=== PATIENT | female | born 1975 | race Caucasian/White ===

== ENCOUNTER 2018-03-10 21:49 | Emergency (ER) | payer OTHER, SELFPAY ==
[2018-03-10 21:50] VITALS: BP 122/72; PULSE 62; RESP 16; TEMP 36.6; O2SAT 98; BMI 26.9
--- NOTE | 2018-03-10 21:58 | RAD_ITS ---
STUDY: X-RAY - LEFT ELBOW REASON FOR EXAM: Female, 42 years old. Fell off of report. TECHNIQUE: 5 view(s) of the elbow. COMPARISON: None. FINDINGS: There is a minimally depressed fracture of the radial head extends into the articular surface of the radius. Elevation of the fat pads. Normal visualized humerus and ulna. Normal radiocapitellar and ulnotrochlear articulations. The soft tissue structures are unremarkable. RAD/Elbow min 3 Views IMPRESSION: Minimally depressed fracture of the radial head Electronically Signed: Trent Sandhu DO at 23:04 EST Tel [phone], Service support ,
--- NOTE | 2018-03-10 23:36 | ED.VISSUMM ---
- ER Visit Summary Date of Service: 03/10/18 Chief Complaint: Left elbow pain and swelling History of Present Illness: The patient is a 42 F who presents with left elbow pain and swelling. She fell off a hover board today and hit her left elbow. She also hit her head. She was wearing a helmet. There was no loss of consciousness. She denies headache. She denies vomiting. She is not anticoagulated. He complains of some tingling in her forearm but no weakness or loss of function. Physical Examination: Afebrile vitals are normal Moist mucous membranes Heart regular rate and rhythm Lungs are clear Patient does have pain on palpation over the left elbow and mild soft tissue swelling palpable radial pulse normal motor function brisk capillary refill normal sensation to light touch GCS of 15 with no focal or lateralizing neurological deficits Test Results: Elbow x-ray shows a minimally depressed fracture of the radial head of Emergency Department Course and Treatment: Patient's pain is well controlled. She was placed in an Ortho-Glass long-arm splint and given a sling. She was advised on supportive care including anti-inflammatories rest ice and elevation. She was referred to orthopedics for follow-up and discharged home. Treatment Plan: [] Disposition: Discharge Impression: Radial head fracture, left This note was generated with [employer] dictation software. It may contain incorrect words, spelling, and punctuation that were not noted in review of the chart prior to signing ED Disposition - Plan for ED Patient: Chief Complaint: Upper Extremity Injury Referrals: Yany Davenport MD [Primary Care Provider] -
--- NOTE | 2018-03-10 23:38 | ED.DEP ---
ED Disposition - Plan for ED Patient: Chief Complaint: Upper Extremity Injury Instructions: ED Fx Radial Head Referrals: Yany Davenport MD [Primary Care Provider] - Festus Hayden DO [STAFF PHYSICIAN] -
[2018-03-11 00:02] VITALS: BP 131/79; PULSE 82; RESP 18; O2SAT 97
--- NOTE | 2018-03-11 00:03 | ED.RN ---
THIS NURSE REVIEWED D/C INSTRUCTIONS WITH PT. PT VERBALIZED UNDERSTANDING OF INSTRUCTIONS. PT DENIES FURTHER NEEDS OR QUESTIONS AT THIS TIME.
== END 2018-03-11 00:03 | disposition home or self-care (01) ==
PROVIDERS: Emergency Provider Emergency Medicine; Family Provider Family Medicine; PCP Family Medicine
DX: S52.122A Displaced fracture of head of left radius, initial encounter for closed fracture (principal); R20.2 Paresthesia of skin; V00.891A Fall from other pedestrian conveyance, initial encounter; Y93.89 Activity, other specified; Y92.9 Unspecified place or not applicable; Y99.9 Unspecified external cause status
CPT/HCPCS: 29105; 73080; 99283

== ENCOUNTER → 2018-05-17 16:56 | Outpatient (CLI) | payer OTHER, SELFPAY ==
--- NOTE | 2018-05-17 17:01 | CT_ITS ---
STUDY: CT ELBOW WITHOUT CONTRAST, LEFT REASON FOR EXAM: Female, 42 years old. Fall and pain RADIATION DOSAGE (If Supplied By Facility): CTDIvol = ( 24.58 ) mGy, DLP = ( 431.54 ) mGycm. Individualized dose optimization techniques were used for this CT.? TECHNIQUE: Axial CT images of the left elbow were performed without contrast followed by sagittal and coronal reconstructions. COMPARISON: Radiographs 03/10/2018 FINDINGS: Nondisplaced fracture of the coronoid process of the ulna. Nondisplaced intra-articular fracture of the radial head with mild depression. No other fractures are seen. The joint spaces are intact. The visualized soft tissues are intact. No hematomas or fluid collections are seen. CT/Extremity Upper without Contra IMPRESSION: Nondisplaced fracture of the coronoid process of the ulna. Nondisplaced intra-articular fracture of the radial head with mild depression. Electronically Signed: Vasyl Cheng MD at 15:42 EDT Tel , Service support ,
== END ==
PROVIDERS: Family Provider Family Medicine; PCP Family Medicine; Referring Provider Physician Assistant Surgical; Visit Provider Physician Assistant Surgical
DX: S52.122D Displaced fracture of head of left radius, subsequent encounter for closed fracture with routine healing (principal); X58.XXXD Exposure to other specified factors, subsequent encounter
CPT/HCPCS: 73200

== ENCOUNTER → 2018-05-26 15:01 | Outpatient (CLI) | payer OTHER, SELFPAY ==
--- NOTE | 2018-05-26 15:06 | US_ITS ---
STUDY: SUPERFICIAL ULTRASOUND - ASSESS FOR LAU'S CYST. REASON FOR EXAM: Female, 42 years old. Popliteal fossa. TECHNIQUE: A superficial ultrasound was performed with real-time and static ribeiro-scale imaging. COMPARISON: None. FINDINGS: No discrete solid or cystic lesions are seen. The popliteal vein is patent. No subcutaneous edema is visualized. US/Ext Non Vasc Limited/Soft Tiss IMPRESSION: No Lau's cyst identified. Electronically Signed: Radha Mosley MD at 22:35 EDT Tel , Service support ,
== END ==
PROVIDERS: Family Provider Family Medicine; PCP Family Medicine; Referring Provider Family Medicine; Visit Provider Family Medicine
DX: M71.21 Synovial cyst of popliteal space [Baker], right knee (principal)
CPT/HCPCS: 76882

== ENCOUNTER 2019-09-16 23:53 | Emergency (ER) | payer OTHER, SELFPAY ==
[2019-09-16 23:54] VITALS: BP 155/103; PULSE 73; RESP 16; TEMP 36.4; O2SAT 100; BMI 26.2
[2019-09-17 00:13] VITALS: BP 155/103; PULSE 73; RESP 16; TEMP 36.4; O2SAT 100
[2019-09-17 00:30] LABS: Bacteria 0 SEEN /hpf (None Seen); Mucous, Urine 0 SEEN /hpf (<or=2+); Red Blood Cells-Urine 0 SEEN /hpf (0-5)
[2019-09-17 00:32] LABS: Color, Urine Straw (Yellow); Glucose, Dipstick Normal (Normal); Ketone-Dipstick Negative (Negative); Leukocyte Esterase-Dipstick 500 /ul (Negative); Nitrite-Dipstick Negative (Negative); Occult Blood-Urine 250 /ul (Negative); Protein-Dipstick 30 mg/dl (Negative); Urine Bilirubin Dipstick Negative (Negative); Urine Clarity Clear (Clear); Urine Urobilinogen Normal (Normal)
--- NOTE | 2019-09-17 00:33 | ED.VIS.GEN ---
History of Present Illness Chief Complaint: Complaint Informant: Patient Narrative: 44-year-old female with no significant past medical history presents with dysuria and hematuria. States that she began having discomfort with urination yesterday evening. States that it worsened approximately 4 hours ago. States that she has increased frequency. States her urine has been tinged with red. Denies any vaginal bleeding or discharge. Denies any fever, chills, nausea, vomiting. Past Medical History - Allergies and Home Meds Allergies/Adverse Reactions: Allergies Penicillins [PCN] Allergy (Verified 03/10/18 21:57) Rash Primary Care Physician: Yany Davenport MD [Primary Care Provider] - Past Medical History: None Surgical History: noncontributory Lives: Spouse/ Significant Other Smoking Status: Never smoker Alcohol: None Drugs: None Review of Systems General: Denies: Chills, Fever, Sweats Eyes: Denies: Visual changes - bilaterally, Diplopia ENT: Denies: Rhinorrhea, Sore throat Cardiovascular: Denies: Chest pain, Palpitations Respiratory: Denies: Dyspnea, Cough, Dyspnea on exertion Gastrointestinal: Denies: Abdominal pain, Nausea, Vomiting, Diarrhea, Melena, Hematochezia Genitourinary: Reports: Dysuria, Hematuria, Frequency Musculoskeletal: Denies: Back pain, Extremity Pain Skin: Denies: Rash, Wounds Neurological: Denies: Headache, Weakness, Numbness Physical Exam Vital Signs/Narrative: Vital Signs Temp Pulse Resp BP Pulse Ox 09/17/19 00:13 97.5 F L 73 16 155/103 H 100 09/16/19 23:54 97.5 F L 73 16 155/103 H 100 Inital Vital Signs reviewed: Yes General: Well nourished, Well developed, No Acute Distress Head: Normocephalic, Atraumatic Eyes: Perrl, EOMI ENT: Moist mucous membranes, No rhinorrhea Neck: Supple, Nontender Cardiovascular: Regular rate, Regular rhythm, No murmurs Respiratory: No distress, CTA bilaterally, Chest nontender Abdomen: Soft, Nontender, Nondistended, Normal bowel sounds Back: Nontender, Normal Inspection Extremities: Nontender, No edema Skin: Normal color, No rash Neurological: Alert, Oriented x3, Cranial nerves II-XII grossly intact, Normal Strength, Normal Sensation Psychological: Normal affect, Normal Mood Diagnostic/Tx/Re-eval Laboratory Data 09/16/19 09/16/19 23:55 23:55 Urine Color Straw Urine Clarity Clear Urine pH 7.0 Ur Specific [place] 1.010 Urine Protein 30 H Urine Glucose (UA) Normal Urine Ketones Negative Urine Occult Blood 250 H Urine Nitrite Negative Urine Bilirubin Negative Urine Urobilinogen Normal Ur Leukocyte Esterase 500 H Urine RBC 0 SEEN Urine WBC 50-100 SEEN Ur Squamous Epith Cells 0-5 SEEN Urine Bacteria 0 SEEN Urine Mucus 0 SEEN Urine Test Negative - Medical Decision Making Patient appears well nontoxic. Vital signs within normal limits. Evidence of UTI. Patient will be started on Keflex. Advised to follow-up with primary care to ensure resolution. Asked to return for new or worsening symptoms. Patient agreeable and discharged home in stable condition. ED Disposition - Plan for ED Patient: Disposition: Home or Assisted Living Diagnosis: UTI (urinary tract infection) Instructions: ED CYSTITIS Female Adult Prescriptions: Cephalexin [Keflex] 500 mg PO BID #14 cap Transmission Status: Pending to [id number] Referrals: Yany Davenport MD [Primary Care Provider] -
[2019-09-17 00:38] LABS: Internal QC Validated? YES +Cl - CLEAR BKGD
[2019-09-17 00:39] LABS: Pregnancy, Urine Negative Negative
[2019-09-17 00:49] LABS: Squamous Epithelial Cells - UA 0-5 SEEN /hpf (5-10); White Blood Cells 50-100 SEEN /hpf (0-5)
[2019-09-17] MEDS: Cephalexin 250 MG Capsule 500 MG PO (01:11)
[2019-09-17 01:15] VITALS: BP 133/61; PULSE 70; RESP 16
== END 2019-09-17 01:16 | disposition home or self-care (01) ==
PROVIDERS: Emergency Provider Emergency Medicine; PCP Family Medicine
DX: N39.0 Urinary tract infection, site not specified (principal); R31.9 Hematuria, unspecified
CPT/HCPCS: 81001; 81025; 99283